=== PATIENT | female | born 1995 | race Caucasian/White ===

== ENCOUNTER 2016-04-20 10:32 | Emergency (ER) | payer OTHER ==
[~2016-04-20] VITALS: Ht 172.7 cm; Wt 92.0 kg
[2016-04-20 10:49] VITALS: TEMP 37.5; Ht 172.7 cm; Wt 92.0 kg
[2016-04-20] MEDS ORDERED: NORE1CHW11 PO (11:11)
[2016-04-20] MEDS ORDERED: LIDO/EPINEPHRINE/SOD BICARB 20 ML VIAL INFIL ONE (11:30)
[2016-04-20 13:08] VITALS: BP 128/81; PULSE 99; O2SAT 100
--- NOTE | 2016-04-20 13:08 | EMERGENCY ROOM VISIT NOTE ---
ED Visit Note First contact with patient: 11:13 CHIEF COMPLAINT: Rectal pain 2-3 days HISTORY OF PRESENT ILLNESS: Patient is an otherwise healthy 20-year-old white female who presents to the emergency department for what she suspects is a thrombosed hemorrhoid. Patient denies any prior history of hemorrhoids or rectal issues. She states that 4 days ago she was stick with a diarrheal illness. She reports multiple episodes of loose, watery diarrhea. She used Imodium, which did slow down her diarrhea, and she noted some slight rectal pain after her last bowel movement. She has not had a bowel movement since. She subsequently developed what she describes as a grape externally over the rectal area. She notes some slight blood with wiping. The area is tender and firm. It has not changed despite using Tucks pads and Preparation H. She has been using stool softeners as well. She denies any anterior abdominal pain. She has had some slight nausea and vomited only once or twice since the diarrheal illness. She has not had any fevers. She rates her pain a 7/10. REVIEW OF SYSTEMS: Review of systems as per HPI. All other systems reviewed were negative. At least 6 systems reviewed. PMH: Electronic medical records are reviewed and summarized as above/below. See Problem List. SOCIAL HISTORY: Patient lives at home. College. Nonsmoker. PHYSICAL EXAM: Vital Signs: Reviewed Nurse's notes. CONSTITUTIONAL: Patient is a pleasant, well-appearing 20-year-old white female who is awake and alert and in no acute distress. RECTAL: Examination of the rectal area show an enlarged, tender external hemorrhoid at the 4 o'clock position. It is tender to palpation. There is no fluctuance or pointing or evidence for abscess. No induration. It does not extend toward the perineal or labial area. EMERGENCY DEPARTMENT COURSE: The patient was seen and evaluated as above. She presents complaining of a painful rectal mass over the last couple of days. On exam her findings do appear consistent with a hemorrhoid. On exam it did not appear to be significantly thrombosed. Treatment options were discussed with the patient, including a trial of Anusol suppositories versus a trial to incise and drain the hemorrhoid. I did discuss with her that if the hemorrhoid was not significantly thrombosed an I&D would not necessarily give her relief of her symptoms. She preferred the I&D procedure. This was performed as outlined in the separate PROCEDURE NOTE section. Continued supportive care measures were discussed. The patient was encouraged to perform sitz baths, and to wear a pad for drainage. She was given contact information for general surgery should her symptoms recur. She does not have any evidence for perirectal or perianal abscess. PROCEDURE NOTE: Using saline and Betadine cleansing, lidocaine anesthesia, and aseptic technique, the hemorrhoid was incised with a number 11 scalpel blade, and a small ellipse of tissue was excised. The hemorrhoid was probed with forceps, there was no significant clot or tissue able to be expressed. There was scant bleeding noted. The hemorrhoid was slightly decompressed manually. The area was irrigated with normal saline solution. The patient tolerated the procedure well. Current/Historical Medications Scheduled Norethin Acet & Estrad-Fe (Minastrin 24 ), 1 TAB PO HS Allergies Coded Allergies: No Known Allergies (Unverified , 04/20/16) Vital Signs Date Time Temp Pulse Resp B/P Pulse Ox O2 Delivery O2 Flow Rate FiO2 04/20/16 13:08 99 18 128/81 100 Room Air 04/20/16 10:49 37.5 115 18 154/77 99 Room Air Departure Information Impression Primary Impression: External hemorrhoid, thrombosed Referrals No Doctor, Assigned (PCP) Noé Acuna M.D. Patient Instructions [facility] Additional Instructions Ibuprofen(Motrin, Advil) may be used for fever or pain. Use 600mg every six hours as needed. Take with food. Avoid using more than 2400mg in a 24 hour period. Do not use 2400mg per day for more than three consecutive days without physician direction. Prolonged inappropriate use can lead to stomach upset or ulcers. (AND/OR) Acetaminophen(Tylenol) may be used for fever or pain. Use 1000mg every six hours as needed. Avoid using more than 3000mg in a 24 hour period. Warm compresses/sitz baths to the affected area 4 times daily for 15-20 minutes. Rest and drink plenty of fluids. Continue current medications. Return to the ER for severe pain, persistent fevers, spreading redness, or any worsening of your condition. Follow up with your primary physician within 2-3 days for a recheck of the current condition. Follow up with general surgery for further care and management if hemorrhoids persist.
== END 2016-04-20 13:14 | disposition home or self-care (01) ==
LOC: C.EDB 10:35 → C.EDC 13:14
DX: K64.5 Perianal venous thrombosis (principal)